=== PATIENT | male | born 1990 | race Caucasian/White ===

== ENCOUNTER 2017-01-08 13:21 | Emergency (ER) | payer OTHER ==
[2017-01-08 17:58] VITALS: BP 128/60
== END 2017-01-08 17:58 | disposition home or self-care (01) ==
LOC: ED 13:21
DX: K29.70 Gastritis, unspecified, without bleeding (principal); M06.9 Rheumatoid arthritis, unspecified; Z88.0 Allergy status to penicillin

== ENCOUNTER 2018-01-07 08:39 | Emergency (ER) | payer OTHER ==
[~2018-01-07] VITALS: Ht 157.5 cm; Wt 82.6 kg
[2018-01-07 08:52] VITALS: Ht 157.5 cm; Wt 82.6 kg
[2018-01-07 10:05] VITALS: BP 127/89
== END 2018-01-07 10:05 | disposition home or self-care (01) ==
LOC: ED 08:39
DX: L03.011 Cellulitis of right finger (principal); M06.9 Rheumatoid arthritis, unspecified; Z88.0 Allergy status to penicillin

== ENCOUNTER 2018-01-12 06:58 | Emergency (ER) | payer OTHER ==
[~2018-01-12] VITALS: Ht 172.7 cm; Wt 82.1 kg
[2018-01-12 07:56] VITALS: BP 121/89
== END 2018-01-12 07:56 | disposition home or self-care (01) ==
LOC: ED 06:58
DX: L03.011 Cellulitis of right finger (principal); Z88.0 Allergy status to penicillin
CPT/HCPCS: A4570; J0696

== ENCOUNTER 2019-06-23 09:43 | Emergency (ER) | payer MEDICAID ==
[~2019-06-23] VITALS: Ht 167.6 cm; Wt 621.0 kg
[2019-06-23 10:07] VITALS: Ht 167.6 cm; Wt 621.0 kg
[2019-06-23 11:44] VITALS: BP 121/77
== END 2019-06-23 11:44 | disposition home or self-care (01) ==
LOC: ED 09:43
DX: L30.9 Dermatitis, unspecified (principal); M06.9 Rheumatoid arthritis, unspecified; F17.200 Nicotine dependence, unspecified, uncomplicated; Z88.0 Allergy status to penicillin

== ENCOUNTER 2019-07-31 18:58 | Emergency (ER) | payer OTHER ==
[~2019-07-31] VITALS: Ht 172.7 cm; Wt 78.9 kg
[2019-07-31 19:03] VITALS: Ht 172.7 cm; Wt 78.9 kg
[2019-07-31 20:12] VITALS: BP 125/76
== END 2019-07-31 20:12 | disposition home or self-care (01) ==
LOC: ED 18:58
DX: K52.9 Noninfective gastroenteritis and colitis, unspecified (principal); Z88.0 Allergy status to penicillin
CPT/HCPCS: J2405